=== PATIENT | female | born 1980 | race Asian ===

== ENCOUNTER 2023-06-21 13:24 | Emergency (ER) | payer OTHER ==
[~2023-06-21] VITALS: Ht 165.1 cm; Wt 61.0 kg
[2023-06-21 13:28] VITALS: TEMP 97.9; O2SAT 100
[2023-06-21] MEDS ORDERED: LIDOCAINE 5% PATCH TOP SCH (13:45)
[2023-06-21] MEDS ORDERED: ACETAMINOPHEN 325MG TABLET PO ONE (13:45)
[2023-06-21] MEDS ORDERED: IBUPROFEN 400MG TABLET PO ONE (13:45)
[2023-06-21 15:01] VITALS: PULSE 78
[2023-06-21 15:02] VITALS: BP 116/63; RESP 16
== END 2023-06-21 16:10 | disposition home or self-care (01) ==
LOC: ER 13:44
DX: M54.9 Dorsalgia, unspecified (principal); V49.59XA Passenger injured in collision with other motor vehicles in traffic accident, initial encounter; Y93.89 Activity, other specified; Y92.89 Other specified places as the place of occurrence of the external cause; Y99.8 Other external cause status
CPT/HCPCS: 76705; 99284